=== PATIENT | male | born 1975 | race Caucasian/White ===

== ENCOUNTER 2020-05-23 15:26 | Day surgery (SDC) | payer BC ==
[~2020-05-23 15:26] MED LIST: EPHEDRINE 25 MG/5 ML SYRINGE ONE; Ketorolac Tromethamine 30 MG/ML VIAL ONE; Lidocaine 1% PF 5 ML VIAL ONE; Ondansetron PF 4 MG/2 ML Vial ONE; PROPOFOL 200 MG/20 ML VIAL ONE; Succinylcholine Chloride 20 MG/ML 10 ml SYRINGE FS ONE
[2020-05-23] MEDS ORDERED: Fentanyl 100 MCG/2 ML VIAL ONE (17:06)
--- NOTE | 2020-05-24 00:15 | CON ---
DATE OF CONSULTATION: 05/23/2020 REASON FOR CONSULTATION: Esophageal food bolus impaction. HISTORY OF PRESENT ILLNESS: Ziggy Ford is a 44-year-old man seen in the outpatient setting by my GI colleague, Dr. Terry Bassett. He reports that he has been having issues with intermittent dysphagia since about October 2018. He had several episodes of regurgitation leading up to initial evaluation. Dr. Bassett performed EGD on 12/17/2019, and this showed characteristic changes of eosinophilic esophagitis and this was confirmed by biopsies. There was no discrete stricture, so no dilation was performed. The patient was treated with pantoprazole 40 mg daily as well as swallowed fluticasone. The patient is no longer using the fluticasone, but he has continued the pantoprazole 40 mg daily. He says he had been doing very well for the past five months since then, until today. He had lunch at [employer] and basically felt as if two bites of steak lodged in the distal esophagus that chest discomfort has persisted over the afternoon. Since then, he has been unable to keep all of his secretions down, essentially regurgitating them back up at frequent intervals into a cup. There were no other symptoms such as abdominal pain or hematemesis or shortness of breath. Glucagon administration was tried, but it did not alleviate his symptoms. REVIEW OF SYSTEMS: Full review of systems including constitutional, head, eyes, ears, nose, throat, GI, , cardiovascular, respiratory, musculoskeletal, neurologic systems is negative except as noted in the HPI. PAST MEDICAL HISTORY: 1. Diabetes type 1, with insulin pump. 2. Eosinophilic esophagitis diagnosed in December 2019. 3. Seasonal allergies. OUTPATIENT MEDICATIONS: 1. Protonix 40 mg daily. 2. Zyrtec. 3. Cialis. SOCIAL HISTORY: He is a former smoker. Alcohol use, probably 3-4 times per week. No drug use. FAMILY HISTORY: Negative for GI malignancy. ALLERGIES: NO KNOWN DRUG ALLERGIES. PHYSICAL EXAMINATION: VITAL SIGNS: Blood pressure is 128/54. GENERAL: Well-appearing 44-year-old man sitting up in bed comfortably, in no distress. Occasionally spitting into an emesis basin. SKIN: No jaundice. No rashes were palpable. HEENT: Eyes, no scleral icterus. Extraocular movements intact. ENT, mucous membranes moist. No oral lesions. LYMPH: No submandibular or supraclavicular lymphadenopathy. Thyroid, nontender to palpation. HEART: Regular rate and rhythm. LUNGS: Clear to auscultation bilaterally. ABDOMEN: Soft, nontender to palpation. EXTREMITIES: No peripheral edema. VESSELS: Radial pulses 2+ bilaterally. NEURO: Cranial nerves II through XII intact bilaterally. No focal deficits. ASSESSMENT/PLAN: 1. Esophageal food bolus impaction. 2. Eosinophilic esophagitis, on pantoprazole 40 mg daily. Notably, the patient had been doing well for the past several months on the pantoprazole, until this acute event. He had previously been taking pantoprazole twice daily and using fluticasone inhaler. We are going to perform EGD this afternoon for further assessment, remove the food bolus impaction. Depending on findings, we may perform esophageal dilation as well. I anticipate he will be able to be discharged home from the PACU. Thank you for the consultation. Please call anytime with questions or concerns. Job ID: [id number]
--- NOTE | 2020-05-24 13:12 | OP ---
DATE OF PROCEDURE: 05/23/2020 This is a GI endoscopy note. REINFORCER SURGEON: None. PROCEDURE: Esophagogastroduodenoscopy with foreign body removal and esophageal dilation. INDICATIONS: 1. History of eosinophilic esophagitis. 2. Esophageal food bolus impaction. MEDICATIONS: See Anesthesia record. FINDINGS: After discussion of the risks, benefits, and alternatives of the procedure, informed consent was obtained and witnessed. Pre-endoscopic cardiopulmonary examination was satisfactory. Time-out was performed before sedation was achieved. Sedation was achieved with Anesthesia assistance in the endoscopy unit. The patient was endotracheally intubated for airway protection under general anesthesia. He was placed in the left lateral decubitus position. A Pentax adult upper endoscope was placed into the oropharynx and passed through the cricopharyngeus under direct visualization. There was a large meat impaction at the GE junction at 45 cm from the incisors. This was removed in piecemeal fashion using the rat-tooth forceps. Following removal of the large meat impaction, attention was directed towards examination of the esophagus and stomach. There are subtle diffuse changes of eosinophilic esophagitis throughout the distal and mid esophagus. However, there is no discrete stricture. There is some mild maceration at the distal esophagus at the site of the meat impaction, but no fibrosis visualized in the area. The endoscope was passed into the stomach. Forward and retroflexed views of the entire gastric mucosa were obtained, which appeared normal. The upper endoscope was then advanced beyond the pylorus and into the first and second portions of the duodenum, which also appeared normal. At this point, the decision was made to dilate the esophagus serially with a Savary dilator over guidewire. A 15 mm dilator was passed without resistance, and then the 18 mm dilator was passed down the esophagus with mild resistance. The esophagus was reintubated with the endoscope for further examination and this demonstrated no significant mucosal disruption. The upper endoscope was completely withdrawn and the patient allowed to recover. The patient tolerated the procedure well. There were no immediate postprocedure complications. IMPRESSION: 1. Large meat impaction at the GE junction at 45 cm, removed with rat-tooth forceps. 2. Diffuse subtle changes of eosinophilic esophagitis. 3. No discrete stricture visualized. 4. Esophagus dilated serially to 15 mm, then 18 mm with Savary dilator, with no significant mucosal disruption. RECOMMENDATIONS: 1. Chew food thoroughly. 2. Liquid diet today, advance diet tomorrow. 3. Increase pantoprazole 40 mg to twice daily dosing. 4. Follow up with Dr. Bassett or his physician social human services assistants in the [facility] in the next 2 weeks. Job ID: [id number]
== END 2020-05-23 19:05 | disposition home or self-care (01) ==
LOC: SDC 15:26
PROVIDERS: ATTEND Internal Medicine
PROC: 0DC58ZZ Extirpation of Matter from Esophagus, Via Natural or Artificial Opening Endoscopic (ICD-10-PCS; principal; 2020-05-23)
PROC: 0D758ZZ Dilation of Esophagus, Via Natural or Artificial Opening Endoscopic (ICD-10-PCS; principal; 2020-05-23)
DX: T18.128A Food in esophagus causing other injury, initial encounter (principal); K20.0 Eosinophilic esophagitis; E10.9 Type 1 diabetes mellitus without complications
CPT/HCPCS: 36416; J1885; J2405; J2704; J3010